=== PATIENT | male | born 1990 | race Hispanic/Latino ===

== ENCOUNTER 2018-11-06 15:47 | Emergency (ER) | payer OTHER ==
[2018-11-06] MEDS ORDERED: HYDROXYZINE HCL 25 MG TABLET ONE (16:15)
== END 2018-11-06 17:12 | disposition home or self-care (01) ==
LOC: EDH 15:47
DX: F41.0 Panic disorder [episodic paroxysmal anxiety] (principal); Z90.49 Acquired absence of other specified parts of digestive tract

== ENCOUNTER 2021-11-27 07:00 | Day surgery (SDC) | payer OTHER ==
[2021-11-26 12:52] VITALS: BP 144/86
[2021-11-27] VITALS (16 sets, daily range): BP systolic 118–150; BP diastolic 75–98
[~2021-11-27] VITALS: Ht 162.6 cm; Wt 78.5 kg
[~2021-11-27 07:00] MED LIST: 0.9% NACL 500ML IV.SOLN 500 ML IV SCH; TRAM50TA4 PO
[2021-11-27] MEDS ORDERED: LACTATED RINGERS 1000ML 1,000 ML IV ONE (07:39)
[2021-11-27] MEDS: CEFAZOLIN SODIUM 1 GM VIAL IVP SCH ×2 (08:02→09:00)
[2021-11-27] MEDS ORDERED: BUPIVACAINE/PF 0.5% 10ML VIAL ONE (08:06)
[2021-11-27] MEDS ORDERED: MIDAZOLAM HCL 1 MG/ML 2ML VIAL ONE (08:29)
[2021-11-27] MEDS ORDERED: SUCCINYLCHOLINE 200MG/10ML SYR ONE (08:29)
[2021-11-27] MEDS ORDERED: LIDOCAINE PF 100MG/5ML (2%) SYRINGE 5ML ONE (08:29)
[2021-11-27] MEDS ORDERED: FENTANYL CITRATE PF 50 MCG/1 ML 2ML VIAL ONE ×2 (08:30→09:11)
[2021-11-27] MEDS ORDERED: ROCURONIUM 10MG/1ML SYR 10 MG/ML ML ONE (08:30)
[2021-11-27] MEDS ORDERED: PROPOFOL 10 MG/ML 20ML VIAL IV ONE (08:30)
[2021-11-27] MEDS ORDERED: GLYCOPYRROLATE 1 MG/5 ML SYRINGE ONE (09:53)
[2021-11-27] MEDS ORDERED: NEOSTIGMINE 5MG/5ML SYR IV ONE (09:54)
[2021-11-27] MEDS ORDERED: MEPERIDINE-PF 25 MG/ML SYG ONE ×2 (10:31→10:41)
[2021-11-27] MEDS ORDERED: ONDANSETRON 4MG INJ ONE (10:44)
== END 2021-11-27 12:10 | disposition home or self-care (01) ==
LOC: DAH 07:00
PROVIDERS: ATTEND Surgery
DX: K80.10 Calculus of gallbladder with chronic cholecystitis without obstruction (principal); Z20.822 Contact with and (suspected) exposure to COVID-19; K82.8 Other specified diseases of gallbladder; E66.9 Obesity, unspecified; F41.9 Anxiety disorder, unspecified; Z90.49 Acquired absence of other specified parts of digestive tract; Z82.49 Family history of ischemic heart disease and other diseases of the circulatory system; Z83.3 Family history of diabetes mellitus; Z82.3 Family history of stroke; Z79.899 Other long term (current) drug therapy; Z98.890 Other specified postprocedural states; Z68.28 Body mass index [BMI] 28.0-28.9, adult
CPT/HCPCS: 47562; S2900; 87635; C9803; J0330; J0690; J2001; J2175; J2250; J2405; J2704; J2710; J3010; J3490; J7030; J7120

== ENCOUNTER → 2022-05-17 | Outpatient (CLI) | payer OTHER ==
[~2022-05-17] MED LIST changes: -0.9% NACL 500ML IV.SOLN 500 ML IV SCH
== END | disposition home or self-care (01) ==
LOC: LAB 09:31
PROVIDERS: ATTEND Hospitalist
DX: U07.1 COVID-19 (principal)
CPT/HCPCS: 87635; C9803

== ENCOUNTER → 2024-09-14 | Outpatient (CLI) | payer OTHER ==
[2024-09-14 07:50] LABS: BASOPHILS # (AUTO) 0.05 K/uL (0.00-0.20); BASOPHILS % (AUTO) 0.5 % (0.0-5.0); EOSINOPHILS # (AUTO) 0.49 K/uL (0.00-0.70); HEMATOCRIT 41.4 % (42-54); IMMATURE GRANULOCYTE ABSOLUTE 0.03 K/uL (0-1); LYMPHOCYTES % (AUTO) 30.9 % (21.0-51.0); MEAN CORPUSCULAR HEMOGLOBIN 29.6 pg (27.0-33.0); MEAN CORPUSCULAR HGB CONC 31.6 g/dL (32.0-36.0); MEAN CORPUSCULAR VOLUME 93.7 fL (79-99); MONOCYTES # (AUTO) 0.8 K/uL (0.1-1.0); MONOCYTES % (AUTO) 8.3 % (3.0-13.0); NEUTROPHILS # (AUTO) 5.4 K/uL (1.8-7.7); PLATELET COUNT (AUTO) 248 K/uL (130-400); RED BLOOD CELL COUNT(AUTO) 4.42 MIL/uL (4.50-6.20); RED CELL DISTRIBUTION WIDTH 13.8 % (11.0-15.5); WHITE BLOOD COUNT (AUTO) 9.8 K/uL (4.8-10.8)
[2024-09-14 08:14] LABS: ALBUMIN 4.1 g/dL (3.5-5.0); CREATININE 1.1 mg/dL (0.5-1.3); POTASSIUM 3.3 mmol/L (3.5-5.1); TOTAL PROTEIN, SERUM 8.1 g/dL (6.0-8.3)
[2024-09-14 08:53] LABS: HIV 1&2 ANTIBODY Non-Reactive (Negative); HIV-1 p24 Antigen Non-Reactive (Negative)
== END | disposition home or self-care (01) ==
LOC: LAB 07:21
DX: Z00.01 Encounter for general adult medical examination with abnormal findings (principal); Z13.6 Encounter for screening for cardiovascular disorders; Z11.59 Encounter for screening for other viral diseases
CPT/HCPCS: 36415; 80053; 80061; 82172; 85025; 86701; 86803; 87390